=== PATIENT | male | born 1995 | race Caucasian/White ===

== ENCOUNTER 2016-08-28 17:05 | Emergency (ER) ==
[2016-08-28 17:14] VITALS: BP 168/89; TEMP 96.9; BMI 54.3
[2016-08-28 17:51] LABS: BASOPHILS # (AUTO) 0.1 K/uL (0-0.2); BASOPHILS % (AUTO) 0.6 % (0.0-3.0); EOSINOPHILS # (AUTO) 0.1 K/ul (0.0-0.7); EOSINOPHILS % (AUTO) 0.9 % (0.0-7.0); HEMATOCRIT 41.5 % (42.0-52.0); IMMATURE GRANULOCYTE % (AUTO) 0.6 % (0.0-5.0); LYMPHOCYTES # (AUTO) 3.8 K/uL (0.60-3.4); LYMPHOCYTES % (AUTO) 30.5 (10.0-50.0); MEAN CORPUSCULAR HEMOGLOBIN 27.9 pg (27.0-31.0); MEAN CORPUSCULAR HGB CONC 33.7 (31.8-35.4); MEAN CORPUSCULAR VOLUME 82.7 fl (80.0-94.0); MONOCYTES # (AUTO) 0.9 K/uL (0.4-2.0); MONOCYTES % (AUTO) 6.9 (0-10); NEUTROPHILS # (AUTO) 7.6 K/ul (2.0-6.9); NEUTROPHILS % (AUTO) 60.5; PLATELET COUNT 239 10^3/uL (140-440); RED BLOOD COUNT 5.02 10^6/ul (4.70-6.10); WHITE BLOOD COUNT 12.54 K/ul (4.2-10.2)
[2016-08-28 18:42] LABS: ALANINE AMINOTRANSFERASE 34 U/L (12-78); ALBUMIN 3.9 g/dL (3.4-5.0); ALBUMIN/GLOBULIN RATIO 1.03; ALKALINE PHOSPHATASE 111 U/L (50-136); ANION GAP 15.1; ASPARTATE AMINO TRANSFERASE 22 U/L (15-37); BLOOD UREA NITROGEN 16 mg/dL (7-18); BUN/CREATININE RATIO 16.32; CALCIUM 9.6 mg/dL (8.2-10.2); CARBON DIOXIDE 29 mmol/L (21-32); CHLORIDE 99 mmol/L (98-107); CREATINE KINASE 541 U/L; CREATININE 0.98 mg/dL (0.60-1.10); GLUCOSE 108 mg/dL (70-100); POTASSIUM 4.1 mmol/L (3.5-5.1); SODIUM 139 mmol/L (136-145); TOTAL PROTEIN 7.7 g/dL (6.4-8.2)
[2016-08-28 18:44] LABS: CREATINE KINASE MB 5.7 ng/ml (0.0-3.6)
[2016-08-28] MEDS ORDERED: TORADOL IM STA (18:46)
--- NOTE | 2016-08-28 18:46 | ED.PDOC ---
General ED Provider: Dr. RACQUEL TORRES Chief Complaint: Chest Wall Injury/Pain Stated Complaint: Pt is a 21 year old male who comes to the ER with c/o sharp pain on the left upper chest to shoulder/ deltpid area that started 2 hours ago. He recalls lifting something heavy at work today. Has a faimily history of WPW in the father and was concerned about the chest pain. Denies any diaphoresis or associated shortness of breath. Time Seen by Physician: 18:43 Mode of Arrival: Walk-In Information Source: Patient Exam Limitations: No limitations Primary Care Provider: INESSA LOPEZ Nursing and Triage Documentation Reviewed and Agree: Yes Cardiovascular Complaint Exam - Chest Pain Complaint/Exam Onset: Gradual Duration: 2 hours Symptoms Are: Still present Timing: Constant Initial Severity: Moderate Current Severity: Mild Location: Reports: Left lateral Pain Radiates: Reports: Left shoulder Character: Reports: Sharp Aggravating: Reports: None Alleviating: Reports: None Associated Signs and Symptoms: Denies: Diaphoresis, Nausea, Vomiting, Fever, Palpitations, Cough, Hemoptysis, Back pain, Abdominal pain, Dizziness, Short of air, Calf pain, Calf swelling Related Surgical History: Reports: None History of Healthcare-Acquired Pneumonia: Reports: No AMI/ACS Risk Factors: Reports: None TAD Risk Factors: Reports: None Prior Care for this Complaint: No Recent Stress Test: No Recent Echo/LV Function: No JVD Present: No Subcutaneous Emphysema Present: No Diminshed Breath Sounds: No Chest Picture: 1 - area of pain If Risk Factors for AMI/ACS Consider: EKG, Cardiac Enzymes, Aspirin (took at home ) Differential Diagnoses: Chest Wall Pain Quality Indicators For Acute MN or Cardiac Chest Pain: EKG in 10min. Review of Systems - Review Of Systems Constitutional: Reports: No symptoms Eyes: Reports: No symptoms Ears, Nose, Mouth, Throat: Reports: No symptoms Respiratory: Reports: No symptoms Cardiac: Reports: Chest pain GI: Reports: No symptoms : Reports: No symptoms Musculoskeletal: Reports: Joint pain (left shoulder deltoid area.) Skin: Reports: No symptoms Neurological: Reports: No symptoms Endocrine: Reports: No symptoms Hematologic/Lymphatic: Reports: No symptoms All Other Systems: Reviewed and Negative Past Medical History - Past Medical History Endocrine: Reports: None Cardiovascular: Reports: Hypertension Respiratory: Reports: None Hematological: Reports: None Gastrointestinal: Reports: GERD Genitourinary: Reports: None Neuro/Psych: Reports: None Musculoskeletal: Reports: Back Pain Cancer: Reports: None Other Pertinent Past Medical History: mobid obesity - Surgical History General Surgical History: Reports: None - Family History Family History: Reports: None - Social History Smoking Status: Light tobacco smoker Hx Substance Use: No Alcohol Screening: None - Immunizations Tetanus Shot up to Date: Yes Physical Exam - Physical Exam Appearance: Ill-appearing, Obese Ill-appearing: Mild Pain Distress: Moderate Neck: Supple Respiratory: Airway patent, Breath sounds clear, Breath sounds equal, Respirations nonlabored Cardiovascular: RRR, Pulses normal, No rub, No murmur GI/: Soft, Nontender, No masses, Bowel sounds normal, No Organomegaly Musculoskeletal: Normal strength, ROM intact, No edema, No calf tenderness Skin: Warm, Dry, Normal color Neurological: Sensation intact Psychiatric: Affect appropriate Interpretation - Radiology Interpretation Radiology Interpretation By: ED Physician Radiology Results: Negative Exam Interpreted: Portable CXR - EKG Interpretation Time of EKG #1: 17:38 Rate: Normal Rhythm: Sinus Ectopy: None [place]: NL ST Segment: Normal Interpretation: low voltage EKG otherwise normal. No delta waves noted. Critical Care Note - Critical Care Note Total Time (mins): 0 Course - Course Hematology/Chemistry: 08/28/16 17:45 08/28/16 17:45 Orders, Labs, Meds: Lab Review 08/28/16 17:45 WBC 12.54 H RBC 5.02 Hgb 14.0 Hct 41.5 L MCV 82.7 MCH 27.9 MCHC 33.7 RDW Coeff of Shyann 12.6 Plt Count 239 Immature Gran % (Auto) 0.6 Neut % (Auto) 60.5 Lymph % (Auto) 30.5 [place] % (Auto) 6.9 Eos % (Auto) 0.9 Baso % (Auto) 0.6 Immature Gran # (Auto) 0.1 Neut # 7.6 H Lymph # 3.8 H [place] # 0.9 Eos # 0.1 Baso # 0.1 Sodium 139 Potassium 4.1 Chloride 99 Carbon Dioxide 29 Anion Gap 15.1 BUN 16 Creatinine 0.98 Estimated GFR (MDRD) 95.00 BUN/Creatinine Ratio 16.32 Glucose 108 H Calcium 9.6 Total Bilirubin 0.20 AST 22 ALT 34 Alkaline Phosphatase 111 Total Creatine Kinase 541 CK-MB (CK-2) 5.7 H* CK-MB (CK-2) % 1.17085 Troponin I < 0.0100 Total Protein 7.7 Albumin 3.9 Globulin 3.8 Albumin/Globulin Ratio 1.03 Orders Category Date Time Status EKG-(ED ONLY) Stat CARDIO 08/28/16 17:34 Ordered ED APPLY O2 .ONCE EMERGENCY 08/28/16 17:34 Active ED PULMONARY PHYSICAL THERAPIST APPLIED .ONCE EMERGENCY 08/28/16 17:34 Active ED IV/MEDIPORT/POWERPORT .ONCE EMERGENCY 08/28/16 17:34 Active CBC W/ AUTO DIFF Stat LAB 08/28/16 17:45 Completed COMPREHENSIVE METABOLIC PANEL Stat LAB 08/28/16 17:45 Completed CREATINE KINASE Stat LAB 08/28/16 17:45 Completed TROPONIN I Stat LAB 08/28/16 17:45 Completed 0.9 % Sodium Chloride [Saline Flush] MEDS 08/28/16 17:34 Ordered 1 syr IVF PRN PRN Ketorolac Tromethamine [Toradol] MEDS 08/28/16 18:46 Discontinued 60 mg IM ONCE STA CHEST, 1V AP ONLY Stat RADS 08/28/16 17:34 Completed Medications Generic Name Dose Route Start Last Admin Trade Name Freq PRN Reason Stop Dose Admin Sodium Chloride 1 syr 08/28/16 17:34 Saline Flush IVF PRN PRN To flush IV Discontinued Medications Generic Name Dose Route Start Last Admin Trade Name Freq PRN Reason Stop Dose Admin Ketorolac Tromethamine 60 mg 08/28/16 18:46 08/28/16 19:01 Toradol IM 08/28/16 18:47 60 mg ONCE STA Administration Vital Signs: Temp Pulse Resp BP Pulse Ox 08/28/16 17:07 96.9 F L 95 H 20 168/89 H 97 LIUDMILA Risk Score Age >/= 65: No >/= 3 CAD Risk Factors: No Known CAD (Stenosis >/= 50%): No ASA Use in Past 7 Days: No Severe Angina (>/= 2 episodes in 24 hours): No EKG ST Changes >/= 0.5mm: No Postive Cardiac Marker: No LIUDMILA Total Score: 0 LIUDMILA Risk Score: Risk Score Odds of by 30D 0 0.1 (0.1-0.2) 1 0.3 (0.2-0.3) 2 0.4 (0.3-0.5) 3 0.7 (0.6-0.9) 4 1.2 (1.0-1.5) 5 2.2 (1.9-2.6) 6 3.0 (2.5-3.6) 7 4.8 (3.8-6.1) Departure - Departure Time of Disposition: 18:51 Disposition: HOME SELF-CARE Discharge Problem: Chest wall pain Instructions: Chest Wall Pain (ED) Condition: Good Pt referred to PMD for follow-up: Yes Additional Instructions: Take pain medications as needed Follow up with PCP in 3 days Push fluids Rest left arm Prescriptions: Ibuprofen 800 mg PO TID PRN #30 tablet PRN Reason: chest wall pain Allergies/Adverse Reactions: Allergies prednisone Adverse Reaction (Verified 08/28/16 17:20) Home Medications: Ambulatory Orders Losartan Potassium [Cozaar] 100 mg PO DAILY 05/10/16 Esomeprazole Magnesium [Nexium 24Hr] 20 mg PO DAILY 08/28/16 Hydrocodone/Acetaminophen [[place] 10-325 Tablet] 1 each PO Q6HR PRN 08/28/16 Ibuprofen 800 mg PO TID PRN #30 tablet 08/28/16 Metformin HCl [Metformin HCl ER] 500 mg PO BID 08/28/16 Pregabalin [Lyrica] 75 mg PO BID 08/28/16 Disposition Discussed With: Patient
--- NOTE | 2016-08-28 19:02 | DI ---
Exam: Portable single view chest. HISTORY: Cough.. COMPARISON: None. FINDINGS: A single portable AP view of the chest. The lungs are clear without consolidation or eff usion. There is no pneumothorax. There are no suspicious pulmonary nodules. The heart size and pu lmonary vasculature are within normal limits, allowing for portable technique. The osseous structur es are normal for age. IMPRESSION: No acute pulmonary disease.
== END 2016-08-28 19:18 | disposition home or self-care (01) ==
LOC: ED 17:05
DX: R07.89 Other chest pain (principal); M25.512 Pain in left shoulder; I10 Essential (primary) hypertension; E66.01 Morbid (severe) obesity due to excess calories; F17.210 Nicotine dependence, cigarettes, uncomplicated; Z79.899 Other long term (current) drug therapy
CPT/HCPCS: 36415; 80053; 82550; 82553; 84484; 85025; 93005; 93010; 96372; 99283

== ENCOUNTER 2016-11-22 10:48 | Emergency (ER) ==
[2016-11-22 10:48] VITALS: BMI 54.3
[2016-11-22 10:54] VITALS: BP 178/83; TEMP 97.6
[2016-11-22] MEDS ORDERED: GI COCKTAIL PO STA (11:13)
--- NOTE | 2016-11-22 11:14 | ED.PDOC ---
General ED Provider: Dr. EUGENE SWENSON JR Chief Complaint: Chest Pain Stated Complaint: has been having sharp pain under left breast, chest pain for 3 days. radiating to neck and shoulder. feels very fatigued[End]3 DAYS 97.6 84 20 96% 178/83 Time Seen by Physician: 11:14 Mode of Arrival: Walk-In Information Source: Patient Exam Limitations: No limitations Primary Care Provider: INESSA LOPEZ Nursing and Triage Documentation Reviewed and Agree: No Review of Systems - Review Of Systems Constitutional: Reports: No symptoms Eyes: Reports: No symptoms Ears, Nose, Mouth, Throat: Reports: No symptoms Respiratory: Reports: No symptoms Cardiac: Reports: Chest pain ( [place]) GI: Reports: Abdominal pain : Reports: No symptoms Musculoskeletal: Reports: No symptoms Skin: Reports: No symptoms Neurological: Reports: No symptoms Endocrine: Reports: No symptoms Hematologic/Lymphatic: Reports: No symptoms All Other Systems: Reviewed and Negative Past Medical History - Past Medical History Endocrine: Reports: DM 2 Cardiovascular: Reports: Hypertension Respiratory: Reports: None Hematological: Reports: None Gastrointestinal: Reports: GERD Genitourinary: Reports: None Neuro/Psych: Reports: None Musculoskeletal: Reports: Back Pain Cancer: Reports: None Other Pertinent Past Medical History: mobid obesity - Surgical History General Surgical History: Reports: Other (Cyst removed from leg, and finger, endoscopy) - Family History Family History: Reports: None - Social History Smoking Status: Current some day smoker Hx Substance Use: No Alcohol Screening: None Physical Exam - Physical Exam Appearance: Well-appearing, Obese Ill-appearing: Mild Eyes: RACHEL ENT: Ears normal, Nose normal, Oropharynx normal Neck: Supple Respiratory: Airway patent, Breath sounds clear, Breath sounds equal, Respirations nonlabored Cardiovascular: RRR, Pulses normal, No rub, No murmur GI/: Soft, No masses, Bowel sounds normal, No Organomegaly, Tender Musculoskeletal: Normal strength, ROM intact, No edema, No calf tenderness Skin: Warm, Dry, Normal color Neurological: Sensation intact, Motor intact, Reflexes intact, Cranial nerves intact, Alert, Oriented Psychiatric: Affect appropriate, Mood appropriate Interpretation - EKG Interpretation Time of EKG #1: 11:21 Rate: Normal Rhythm: Sinus ST Segment: Normal Critical Care Note - Critical Care Note Total Time (mins): 5 Course - Course Hematology/Chemistry: 11/22/16 11:20 11/22/16 11:20 Orders, Labs, Meds: Lab Review 11/22/16 11:20 WBC 7.52 RBC 4.87 Hgb 13.7 L Hct 39.8 L MCV 81.7 MCH 28.1 MCHC 34.4 RDW Coeff of Shyann 12.9 Plt Count 203 Immature Gran % (Auto) 0.7 Neut % (Auto) 63.3 Lymph % (Auto) 26.5 [place] % (Auto) 5.3 Eos % (Auto) 3.5 Baso % (Auto) 0.7 Immature Gran # (Auto) 0.1 Neut # 4.8 Lymph # 2.0 [place] # 0.4 Eos # 0.3 Baso # 0.1 Sodium 137 Potassium 3.5 Chloride 103 Carbon Dioxide 26 Anion Gap 11.5 BUN 13 Creatinine 0.86 Estimated GFR (MDRD) 110.00 BUN/Creatinine Ratio 15.11 Glucose 204 H Calcium 9.5 Total Bilirubin 0.48 AST 27 ALT 47 Alkaline Phosphatase 97 Total Creatine Kinase 247 CK-MB (CK-2) 2.8 CK-MB (CK-2) % 1.45865 Troponin I 0.0120 B-Natriuretic Peptide < 10 Total Protein 7.0 Albumin 3.6 Globulin 3.4 Albumin/Globulin Ratio 1.06 Orders Category Date Time Status EKG-(ED ONLY) Stat CARDIO 11/22/16 11:13 Completed B-TYPE NATRIURETIC PEPTIDE Stat LAB 11/22/16 11:20 Completed CBC W/ AUTO DIFF Stat LAB 11/22/16 11:20 Completed COMPREHENSIVE METABOLIC PANEL Stat LAB 11/22/16 11:20 Completed CREATINE KINASE Stat LAB 11/22/16 11:20 Completed TROPONIN I Stat LAB 11/22/16 11:20 Completed CHEST, 1V AP ONLY Stat RADS 11/22/16 11:13 Completed Vital Signs: Temp Pulse Resp BP Pulse Ox 11/22/16 10:48 97.6 F 84 20 178/83 H 96 LIUDMILA Risk Score LIUDMILA Risk Score: Risk Score Odds of by 30D 0 0.1 (0.1-0.2) 1 0.3 (0.2-0.3) 2 0.4 (0.3-0.5) 3 0.7 (0.6-0.9) 4 1.2 (1.0-1.5) 5 2.2 (1.9-2.6) 6 3.0 (2.5-3.6) 7 4.8 (3.8-6.1) Departure - Departure Time of Disposition: 13:47 Disposition: HOME SELF-CARE Discharge Problem: Chest pain of uncertain etiology Instructions: Gastritis (ED), Diet for Stomach Ulcers and Gastritis (ED) Condition: Good Pt referred to PMD for follow-up: Yes Additional Instructions: blood sugar was 200- avoid all sugar and simple carbohydrates daily exercise may use nexxium for stomach discomfort recheckPMDone week Prescriptions: Esomeprazole Magnesium [Nexium] 40 mg PO DAILY #30 capsule. Allergies/Adverse Reactions: Allergies prednisone Adverse Reaction (Verified 11/22/16 10:54) Home Medications: Ambulatory Orders Losartan Potassium [Cozaar] 100 mg PO DAILY 05/10/16 Hydrocodone/Acetaminophen [[place] 10-325 Tablet] 1 each PO Q6HR PRN 08/28/16 Ibuprofen 800 mg PO TID PRN #30 tablet 08/28/16 Metformin HCl [Metformin HCl ER] 500 mg PO BID 08/28/16 Esomeprazole Magnesium [Nexium] 40 mg PO DAILY #30 capsule. 11/22/16 Omeprazole [Prilosec] 20 mg PO QDAC 11/22/16
[2016-11-22 11:29] LABS: BASOPHILS # (AUTO) 0.1 K/uL (0-0.2); BASOPHILS % (AUTO) 0.7 % (0.0-3.0); EOSINOPHILS # (AUTO) 0.3 K/ul (0.0-0.7); EOSINOPHILS % (AUTO) 3.5 % (0.0-7.0); HEMATOCRIT 39.8 % (42.0-52.0); HEMOGLOBIN 13.7 g/dl (14.0-18.0); IMMATURE GRANULOCYTE % (AUTO) 0.7 % (0.0-5.0); LYMPHOCYTES % (AUTO) 26.5 (10.0-50.0); MEAN CORPUSCULAR HEMOGLOBIN 28.1 pg (27.0-31.0); MEAN CORPUSCULAR HGB CONC 34.4 (31.8-35.4); MEAN CORPUSCULAR VOLUME 81.7 fl (80.0-94.0); MONOCYTES # (AUTO) 0.4 K/uL (0.4-2.0); MONOCYTES % (AUTO) 5.3 (0-10); NEUTROPHILS # (AUTO) 4.8 K/ul (2.0-6.9); NEUTROPHILS % (AUTO) 63.3; PLATELET COUNT 203 10^3/uL (140-440); RED BLOOD COUNT 4.87 10^6/ul (4.70-6.10); WHITE BLOOD COUNT 7.52 K/ul (4.2-10.2)
--- NOTE | 2016-11-22 11:55 | DI ---
EXAM: Chest one view HISTORY: Chest pain COMPARISON: 08/28/2016 TECHNIQUE: Single view of the chest was performed FINDINGS: The lungs are clear. There is no pleural effusion or pneumothorax. The heart is normal in size. The mediastinal contour is normal. There are no acute abnormalities of the bones. IMPRESSION: No acute cardiopulmonary process.
[2016-11-22 12:08] LABS: ALBUMIN 3.6 g/dL (3.4-5.0); ALBUMIN/GLOBULIN RATIO 1.06; ANION GAP 11.5; BILIRUBIN,TOTAL 0.48 mg/dL (0.00-1.20); BUN/CREATININE RATIO 15.11; CALCIUM 9.5 mg/dL (8.2-10.2); CREATININE 0.86 mg/dL (0.60-1.10); POTASSIUM 3.5 mmol/L (3.5-5.1); TROPONIN I 0.012 ng/ml (0.0000-0.4000)
[2016-11-22 12:35] LABS: CREATINE KINASE MB 2.8 ng/ml (0.0-3.6)
== END 2016-11-22 14:00 | disposition home or self-care (01) ==
LOC: ED 10:48
DX: R07.9 Chest pain, unspecified (principal); R10.9 Unspecified abdominal pain; E11.9 Type 2 diabetes mellitus without complications; I10 Essential (primary) hypertension; R53.83 Other fatigue; R20.0 Anesthesia of skin; F17.210 Nicotine dependence, cigarettes, uncomplicated; E66.01 Morbid (severe) obesity due to excess calories; Z79.899 Other long term (current) drug therapy
CPT/HCPCS: 36415; 80053; 82550; 82553; 83880; 84484; 85025; 93005; 93010; 99283